=== PATIENT | female | born 1995 | race Caucasian/White ===

== ENCOUNTER 2018-12-04 10:59 | Emergency (ER) | payer OTHER ==
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
[2018-12-04 12:24] VITALS: BP 118/82
== END 2018-12-04 12:27 | disposition home or self-care (01) ==
LOC: ER 11:03
DX: S06.0X9A Concussion with loss of consciousness of unspecified duration, initial encounter (principal); S00.93XA Contusion of unspecified part of head, initial encounter; V43.63XA Car passenger injured in collision with pick-up truck in traffic accident, initial encounter
CPT/HCPCS: 70450; 72125; 99284